=== PATIENT | male | born 1975 | race Two or more races ===

== ENCOUNTER → 2017-02-04 | Outpatient (REF) | payer OTHER ==
[2017-02-04 12:15] LABS: ALBUMIN 3.9 GM/DL (3.2-5.2); ALKALINE PHOSPHATASE 58 U/L (45-117); ALT/SGPT 37 U/L (12-78); ANION GAP 5 MEQ/L (8-16); AST/SGOT 26 U/L (15-37); BILIRUBIN,TOTAL 0.4 MG/DL (0.2-1.0); BLOOD UREA NITROGEN 20 MG/DL (7-18); CALCIUM LEVEL 8.9 MG/DL (8.5-10.1); CARBON DIOXIDE LEVEL 29 MEQ/L (21-32); CHLORIDE LEVEL 106 MEQ/L (98-107); CHOLESTEROL LEVEL 212 MG/DL (<200); CREATININE FOR GFR 0.92 MG/DL (0.70-1.30); GLOMERULAR FILTRATION RATE > 60.0 (>60); GLUCOSE, FASTING 94 MG/DL (70-105); POTASSIUM SERUM 4.7 MEQ/L (3.5-5.1); SODIUM LEVEL 140 MEQ/L (136-145); TOTAL PROTEIN 6.9 GM/DL (6.4-8.2); TRIGLYCERIDES LEVEL 100 MG/DL (<150)
== END ==
LOC: M SFHCCLAY 09:37
PROVIDERS: ATTEND Family Medicine
DX: Z00.00 Encounter for general adult medical examination without abnormal findings (principal)

== ENCOUNTER → 2017-02-11 | Outpatient (CLI) | payer OTHER ==
--- NOTE | 2017-02-11 09:10 | REP ---
Clinical: Abdominal pain at the site of prior hernia repair. Technique: Real time doyle scale ultrasound examination using curved array transducer. Findings: Directed ultrasound examination in the periumbilical region at the site of maximal pain demonstrates a small fat containing supraumbilical hernia. Defect measures 16 mm on Valsalva. No herniating bowel is appreciated. No further fluid collection or mass lesion identified. Impression: Small fat containing supraumbilical hernia. Signed by Angel Luis Marquis MD 02/11/2017 09:01 A
== END ==
LOC: M RAD 08:10
PROVIDERS: ATTEND Family Medicine
DX: Z00.00 Encounter for general adult medical examination without abnormal findings (principal); K42.9 Umbilical hernia without obstruction or gangrene

== ENCOUNTER 2018-09-12 05:59 | Day surgery (SDC) | payer OTHER ==
[2018-09-12] MEDS ORDERED: LIDOCAINE 1% MDV 20ML VIAL SQ (06:00)
[2018-09-12] MEDS: LR 1,000 ML IV (06:15)
[2018-09-12] MEDS ORDERED: dexameTHASONE 4 MG/ML 1ML VIAL (J1100) As Ordered (06:27)
[2018-09-12] MEDS ORDERED: KETOROLAC 60 MG/2 ML VIAL (J1885) As Ordered (06:27)
[2018-09-12] MEDS ORDERED: ONDANSETRON 4MG/2ML VIAL (J2405) As Ordered (06:27)
[2018-09-12] MEDS ORDERED: PROPOFOL 200 MG/20 ML VIAL As Ordered ×2 (06:27→08:01)
[2018-09-12] MEDS ORDERED: ROCURONIUM BROMIDE 50 MG/5 ML VIAL As Ordered ×2 (06:27→09:20)
[2018-09-12] MEDS ORDERED: LIDOCAINE 2% INJ 100 MG/5 ML SDV (FOR ANES.) As Ordered (06:27)
[2018-09-12] MEDS ORDERED: MIDAZOLAM INJ 2 MG/2 ML VIAL (J2250) As Ordered (06:33)
[2018-09-12] MEDS ORDERED: fentaNYL 100 MCG/2 ML INJECTION (J3010) As Ordered ×2 (06:33→08:03)
[2018-09-12] MEDS: BUPIVACAINE LIPOSOME/PF 1.3% 20ML VIAL (13.3MG/ML)(EXPAREL)(C9290 PER1MG) As Ordered (09:20)
[2018-09-12] MEDS ORDERED: SUGAMMADEX SODIUM 500 MG/5 ML VIAL (BRIDION) As Ordered (09:20)
[2018-09-12] MEDS: BUPIVACAINE HCL 0.25% 30 ML VIAL As Ordered (09:21)
[2018-09-12] MEDS ORDERED: PERCOCET 5MG/325MG TAB As Ordered (09:53)
[2018-09-12] MEDS ORDERED: MORPHINE 10 MG/ML 1ML VIAL (J2270) As Ordered (09:53)
[2018-09-12] MEDS: MORPHINE 10 MG/ML 1ML VIAL (J2270) IV ×3 (09:56→10:05)
[2018-09-12] MEDS: PERCOCET 5MG/325MG TAB PO ×2 (09:57→10:27)
[2018-09-12] MEDS ORDERED: ONDANSETRON 4MG/2ML VIAL (J2405) IV (10:00)
[2018-09-12] MEDS ORDERED: KETOROLAC 30 MG/ML VIAL (J1885) IV (10:00)
[2018-09-12] MEDS ORDERED: LR 1,000 ML IV (10:00)
[2018-09-12] MEDS: fentaNYL 100 MCG/2 ML INJECTION (J3010) IV ×3 (10:20→10:50)
[2018-09-12] MEDS ORDERED: HYDROMORPHONE HCL 0.5 MG/ 0.5 ML SYRINGE (J1170 PER 1) IV (10:30)
== END 2018-09-12 12:25 | disposition home or self-care (01) ==
LOC: M SDC 05:59
DX: K43.0 Incisional hernia with obstruction, without gangrene (principal); Z87.891 Personal history of nicotine dependence
CPT/HCPCS: 49654